=== PATIENT | male | born 1990 | race Caucasian/White ===

== ENCOUNTER 2017-02-26 15:04 | Emergency (ER) | payer OTHER ==
[2017-02-26 15:21] VITALS: BP 136/74
[2017-02-26] MEDS ORDERED: CYCL10TA PO (16:39)
[2017-02-26] MEDS ORDERED: NORCOTAB PO (16:39)
== END 2017-02-26 16:45 | disposition home or self-care (01) ==
LOC: M ED 15:04
DX: S39.012A Strain of muscle, fascia and tendon of lower back, initial encounter (principal); X58.XXXA Exposure to other specified factors, initial encounter; Y92.89 Other specified places as the place of occurrence of the external cause; Y93.89 Activity, other specified; Y99.9 Unspecified external cause status